=== PATIENT | male | born 1985 | race African-American/Black ===

== ENCOUNTER 2017-12-29 15:21 | Emergency (ER) | payer MEDICAID, OTHER ==
[~2017-12-29] VITALS: Ht 172.7 cm; Wt 90.0 kg
[2017-12-29] MEDS ORDERED: ONDANSETRON HCL 4MG/2ML VIAL IV STA (19:09)
[2017-12-29] MEDS ORDERED: SODIUM CHLORIDE 0.9% 1,000 ML IV ONE (19:09)
[2017-12-29] MEDS ORDERED: KETOROLAC 30MG/ML VIAL IV STA (19:09)
[2017-12-29 20:09] LABS: BASOPHILS % 0.2 % (0.0-2.0); EOSINOPHILS % 0.1 % (0.0-5.0); HEMATOCRIT. 43.6 % (42.0-52.0); HEMOGLOBIN. 14.8 g/dL (14.0-18.0); LYMPHOCYTES % 7.5 % (20.0-50.0); MEAN CORPUSCULAR HEMOGLOBIN 28.5 pg (28.0-32.0); MEAN CORPUSCULAR VOLUME 83.7 fL (80.0-94.0); MEAN PLATELET VOLUME 8.6 fl (7.4-10.4); MONOCYTES % 3.1 % (2.0-8.0); NEUTROPHILS % 89.1 % (40.0-76.0); PLATELET 295 x1000/uL (130-400); RED CELL DISTRIBUTION WIDTH 13.7 % (11.6-14.6)
[2017-12-29 20:19] LABS: CHLORIDE 105 mEq/L (98-107)
[2017-12-29 20:25] LABS: ETHANOL BLOOD < 10 mg/dL
[2017-12-29 20:36] LABS: *AMPHETAMINES SCREEN URINE NEGATIVE (NEGATIVE); *BARBITURATES SCREEN URINE NEGATIVE (NEGATIVE)
[2017-12-29 20:37] LABS: *BENZODIAZEPINES SCREEN URINE PRESUMTIVE POSITIVE (NEGATIVE); *COCAINE SCREEN URINE NEGATIVE (NEGATIVE); METHADONE URINE SCREEN NEGATIVE (NEGATIVE); OPIATES URINE SCREEN PRESUMTIVE POSITIVE (NEGATIVE); PHENCYCLIDINE URINE SCREEN NEGATIVE (NEGATIVE)
[2017-12-29 20:38] LABS: CANNABINOID URINE SCREEN PRESUMTIVE POSITIVE (NEGATIVE)
[2017-12-29] MEDS ORDERED: METOCLOPRAMIDE HCL 10MG/2ML VIAL IV ONE (22:30)
[2017-12-29 23:11] VITALS: BP 147/82
== END 2017-12-29 23:11 | disposition home or self-care (01) ==
LOC: ER 15:32
DX: R10.31 Right lower quadrant pain (principal); R11.2 Nausea with vomiting, unspecified
CPT/HCPCS: 36415; 74176; 80053; 80305; 83690; 85025; 96361; 96374; 96375; 99285; G0482; J1885; J2405; J2765; J7030; Z7610

== ENCOUNTER 2018-01-04 08:56 | Emergency (ER) | payer MEDICAID ==
[~2018-01-04] VITALS: Ht 182.9 cm; Wt 107.0 kg
[2018-01-04 09:01] VITALS: BP 137/77
== END 2018-01-04 10:07 | disposition home or self-care (01) ==
LOC: ER 08:56
DX: T81.4XXA Infection following a procedure, initial encounter (principal); L08.89 Other specified local infections of the skin and subcutaneous tissue; F17.200 Nicotine dependence, unspecified, uncomplicated; Y83.8 Other surgical procedures as the cause of abnormal reaction of the patient, or of later complication, without mention of misadventure at the time of the procedure; Y92.018 Other place in single-family (private) house as the place of occurrence of the external cause
CPT/HCPCS: 99283

== ENCOUNTER 2018-01-07 11:03 | Emergency (ER) | payer MEDICAID ==
[~2018-01-07] VITALS: Ht 182.9 cm; Wt 98.8 kg
[2018-01-07 11:23] VITALS: BP 124/89
== END 2018-01-07 15:30 | disposition left against medical advice (07) ==
LOC: ER 15:14
DX: R11.2 Nausea with vomiting, unspecified (principal); Z53.21 Procedure and treatment not carried out due to patient leaving prior to being seen by health care provider